=== PATIENT | male | born 1970 | race Caucasian/White ===

== ENCOUNTER 2020-08-09 18:07 | Emergency (ER) | payer OTHER ==
[~2020-08-09] VITALS: Ht 167.6 cm; Wt 106.6 kg
[2020-08-09] MEDS ORDERED: GLUCOPHAGE1000 MG PO (18:22)
[2020-08-09] MEDS ORDERED: SYNTHROID150 MCG PO (18:23)
[2020-08-09] MEDS ORDERED: IBUPROFEN 800800 M1 PO (18:54)
[2020-08-09] MEDS ORDERED: TRAMADOL 50 MG50 MG PO (18:54)
[2020-08-09 19:12] VITALS: BP 138/74
== END 2020-08-09 19:13 | disposition home or self-care (01) ==
LOC: M.ERS 18:07
DX: M54.6 Pain in thoracic spine (principal); M25.511 Pain in right shoulder; E11.9 Type 2 diabetes mellitus without complications; E03.9 Hypothyroidism, unspecified; Z90.89 Acquired absence of other organs